=== PATIENT | male | born 1985 | race Caucasian/White ===

== ENCOUNTER 2017-05-09 10:58 | Emergency (ER) | payer BC, MEDICAID ==
[2017-05-09] MEDS: TETRACAINE 0.5% 4 ML OPH RIGHT EYE (13:28)
== END 2017-05-09 14:17 | disposition home or self-care (01) ==
LOC: FTE 10:58
DX: T15.01XA Foreign body in cornea, right eye, initial encounter (principal); X58.XXXA Exposure to other specified factors, initial encounter; Y92.9 Unspecified place or not applicable
CPT/HCPCS: 65222; 99283-25